=== PATIENT | male | born 1960 | race Caucasian/White ===

== ENCOUNTER 2018-10-30 15:51 | Emergency (ER) | payer OTHER, BC ==
--- NOTE | 2018-10-30 16:39 | EDM.PDOC ---
ED HPI GENERAL MEDICAL PROBLEM - General Chief Complaint: Neuro Symptoms/Deficits Stated Complaint: VERTIGO Time Seen by Provider: 10/30/18 16:36 Source of Information: Reports: Patient, EMS History Limitations: Reports: No Limitations - History of Present Illness INITIAL COMMENTS - FREE TEXT/NARRATIVE: Had a 10 minute episode of vertigo while working underneath his car. Denies injury. Has had a left frontal headache x 1 week, h/o Migraine but hasn't had a migraine for several years. Typical migraine is left frontal. Was treated at [facility] on 10/25/18, per pt head ct was normal and Toradol improved the pain. He denies chest pain, shortness of breath or h/o CAD. Onset: Other ([employer] [employer]) Frontal migraine Pain Score (Numeric/FACES): 3 - Related Data Allergies Allergy/AdvReac Type Severity Reaction Status Date / Time doxazosin Allergy Cannot Verified 10/30/18 17:29 Remember promethazine [From Phenergan] Allergy Burning Verified 10/30/18 17:29 Past Medical History Cardiovascular History: Denies: CAD Respiratory History: Reports: COPD Gastrointestinal History: Reports: GERD Neurological History: Reports: Migraines - Past Surgical History Neurological Surgical History: Reports: Other (See Below) (craniovertebral decompression for migraine) Social & Family History - Tobacco Use Smoking Status *Q: Never Smoker ED ROS GENERAL - Review of Systems Review Of Systems: ROS reveals no pertinent complaints other than HPI. ED EXAM, DIZZINESS - Physical Exam Exam: See Below Exam Limited By: No Limitations General Appearance: Alert, WD/WN, No Apparent Distress Eye Exam: Bilateral Eye: EOMI, PERRL Ears: Normal TMs Nose: Normal Inspection Throat/Mouth: No Airway Compromise Head Exam: Atraumatic, Normocephalic Neck: Supple Respiratory/Chest: No Respiratory Distress, Lungs Clear, Normal Breath Sounds Cardiovascular: Regular Rate, Rhythm, No Murmur GI/Abdominal: No Distention Neurological: Alert, Normal Mood/Affect, No Motor/Sensory Deficits, Oriented x 3 Extremities: Normal Inspection, Normal Range of Motion Psychiatric: Normal Affect, Normal Mood Skin Exam: Warm, Dry, Intact EKG INTERPRETATION EKG Date: 10/30/18 Time: 16:14 Rhythm: NSR Rate (Beats/Min): 74 [place]: Normal P-Wave: Present QRS: Normal ST-T: Normal QT: Normal Comparison: NA - No Prior EKG Course - Vital Signs Last Recorded V/S: Last Vital Signs Temp 36.6 C 10/30/18 15:51 Pulse 73 10/30/18 15:51 Resp 18 10/30/18 15:51 BP 121/72 10/30/18 15:51 Pulse Ox 97 10/30/18 15:51 - Orders/Labs/Meds Orders: Active Orders 24 hr Category Date Time Status EKG Documentation Completion [RC] ASDIRECTED Care 10/30/18 16:05 Active Head wo Cont [CT] Stat Exams 10/30/18 16:35 Taken EKG 12 Lead [EK] Stat Ther 10/30/18 16:05 Ordered Labs: Laboratory Tests 10/30/18 10/30/18 10/30/18 Range/Units 16:08 16:08 16:08 WBC 7.3 (4.5-12.0) X10-3/uL RBC 4.66 (4.30-5.75) x10(6)uL Hgb 14.5 (13.5-17.8) g/dL Hct 41.9 (30.0-51.3) % MCV 89.9 (80-96) fL MCH 31.0 (27.7-33.6) pg MCHC 34.5 (32.2-35.4) g/dL RDW 12.2 (11.5-15.5) % Plt Count 270 (125-369) X10(3)uL MPV 6.9 L (7.4-10.4) fL Neut % (Auto) 58.3 (46-82) % Lymph % (Auto) 28.0 (13-37) % [place] % (Auto) 8.3 (4-12) % Eos % (Auto) 4 (1.0-5.0) % Baso % (Auto) 1 (0-2) % Neut # (Auto) 4.3 (1.6-8.3) # Lymph # (Auto) 2.0 (0.6-5.0) # [place] # (Auto) 0.6 (0.0-1.3) # Eos # (Auto) 0.3 (0.0-0.8) # Baso # (Auto) 0.1 (0.0-0.2) # PT 10.3 (8.7-11.1) INR 1.06 (0.89-1.13) APTT 22.1 L (24.4-33.2) SECONDS Sodium 142 (135-145) mmol/L Potassium 3.6 (3.5-5.3) mmol/L Chloride 106 (100-110) mmol/L Carbon Dioxide 28 (21-32) mmol/L BUN 16 (7-18) mg/dL Creatinine 1.1 (0.70-1.30) mg/dL Est Cr Clr Drug Dosing TNP Estimated GFR (MDRD) > 60 (>60) BUN/Creatinine Ratio 14.5 (9-20) Glucose 99 (80-116) mg/dL Calcium 9.1 (8.6-10.2) mg/dL Total Bilirubin 0.4 (0.1-1.3) mg/dL AST 35 H (5-25) IU/L ALT 39 H (12-36) U/L Alkaline Phosphatase 89 (56-112) IU/L Troponin I (<0.017-0.056) ng/mL Total Protein 7.0 (6.0-8.0) g/dL Albumin 3.7 (3.5-5.2) g/dL Globulin 3.3 g/dL Albumin/Globulin Ratio 1.1 // Range/Units 16:08 WBC (4.5-12.0) X10-3/uL RBC (4.30-5.75) x10(6)uL Hgb (13.5-17.8) g/dL Hct (30.0-51.3) % MCV (80-96) fL MCH (27.7-33.6) pg MCHC (32.2-35.4) g/dL RDW (11.5-15.5) % Plt Count (125-369) X10(3)uL MPV (7.4-10.4) fL Neut % (Auto) (46-82) % Lymph % (Auto) (13-37) % [place] % (Auto) (4-12) % Eos % (Auto) (1.0-5.0) % Baso % (Auto) (0-2) % Neut # (Auto) (1.6-8.3) # Lymph # (Auto) (0.6-5.0) # [place] # (Auto) (0.0-1.3) # Eos # (Auto) (0.0-0.8) # Baso # (Auto) (0.0-0.2) # PT (8.7-11.1) INR (0.89-1.13) APTT (24.4-33.2) SECONDS Sodium (135-145) mmol/L Potassium (3.5-5.3) mmol/L Chloride (100-110) mmol/L Carbon Dioxide (21-32) mmol/L BUN (7-18) mg/dL Creatinine (0.70-1.30) mg/dL Est Cr Clr Drug Dosing Estimated GFR (MDRD) (>60) BUN/Creatinine Ratio (9-20) Glucose (80-116) mg/dL Calcium (8.6-10.2) mg/dL Total Bilirubin (0.1-1.3) mg/dL AST (5-25) IU/L ALT (12-36) U/L Alkaline Phosphatase (56-112) IU/L Troponin I < 0.017 L (<0.017-0.056) ng/mL Total Protein (6.0-8.0) g/dL Albumin (3.5-5.2) g/dL Globulin g/dL Albumin/Globulin Ratio Meds: Medications Discontinued Medications Generic Name Dose Route Start Last Admin Trade Name Freq PRN Reason Stop Dose Admin Sumatriptan Succinate 6 mg 10/30/18 17:12 10/30/18 17:30 Imitrex SUBCUT 10/30/18 17:13 6 mg ONETIME ONE Administration - Radiology Interpretation Free Text/Narrative:: Head CT: No acute process - Re-Assessments/Exams Free Text/Narrative Re-Assessment/Exam: 10/30/18 17:55 Headache improved after Imitrex 6mg SQ. Departure - Departure Time of Disposition: 17:55 Disposition: Home, Self-Care 01 Condition: Good Clinical Impression: Vertigo Migraine Qualifiers: Migraine type: unspecified Status migrainosus presence: without status migrainosus Intractability: not intractable Qualified Code(s): G43.909 - Migraine, unspecified, not intractable, without status migrainosus - Discharge Information *PRESCRIPTION DRUG MONITORING PROGRAM REVIEWED*: No *COPY OF PRESCRIPTION DRUG MONITORING REPORT IN PATIENT JOB: Not Applicable Instructions: Vertigo, [id number], Migraine Headache, [id number] Referrals: PCP,Not In Area [Primary Care Provider] - Forms: ED Department Discharge, ED Return to Work/School Form Additional Instructions: Rest, drink plenty of fluids. Follow up with your Neurologist in 2-3 days. Return to the ER if symptoms worsen. - My Orders Last 24 Hours: My Active Orders 10/30/18 16:05 EKG Documentation Completion [RC] ASDIRECTED EKG 12 Lead [EK] Stat 10/30/18 16:35 Head wo Cont [CT] Stat - Assessment/Plan Last 24 Hours: My Active Orders 10/30/18 16:05 EKG Documentation Completion [RC] ASDIRECTED EKG 12 Lead [EK] Stat 10/30/18 16:35 Head wo Cont [CT] Stat
[2018-10-30] MEDS ORDERED: SUMAtriptan 6 MG/0.5 ML SDV SUBCUT ONE (17:12)
== END 2018-10-30 18:45 | disposition home or self-care (01) ==
LOC: FB.ED 15:51
DX: G43.909 Migraine, unspecified, not intractable, without status migrainosus (principal); R42 Dizziness and giddiness
CPT/HCPCS: 36415; 70450; 80053; 84484; 85025; 85610; 85730; 93005; 96372; 99285-25; J3030

== ENCOUNTER 2019-03-08 08:59 | Day surgery (SDC) | payer OTHER, BC ==
[2019-03-08] MEDS ORDERED: LORazepam 2 MG/ML SDV IVPUSH ONE (09:18)
[2019-03-08] MEDS ORDERED: Glucagon,Human Recombinant 1 MG Vial IVPUSH ONE (09:19)
[2019-03-08] MEDS: Sodium Chloride 0.9% 10 ML Syringe FLUSH PRN ×2 (09:23→09:31)
--- NOTE | 2019-03-08 10:21 | EDM.PDOC ---
ED HPI GENERAL MEDICAL PROBLEM - General Chief Complaint: Gastrointestinal Problem Stated Complaint: FOOD STUCK ON THROAT Time Seen by Provider: 03/08/19 09:45 Source of Information: Reports: Patient - History of Present Illness INITIAL COMMENTS - FREE TEXT/NARRATIVE: Patient is a 58 yo wm who presented to the ED because of a carrot that is stock in his throat and couldn't swallow it. He denies any n/v or dyspnea. He denies any h/o esophageal or throat problems. - Related Data Allergies Allergy/AdvReac Type Severity Reaction Status Date / Time doxazosin Allergy Cannot Verified 03/08/19 09:18 Remember promethazine [From Phenergan] Allergy Burning Verified 03/08/19 09:18 Past Medical History Respiratory History: Reports: COPD Gastrointestinal History: Reports: GERD Genitourinary History: Reports: Retention, Urinary Musculoskeletal History: Reports: Arthritis, Back Pain, Chronic, Fracture Other Musculoskeletal History: L hand crushed, Neurological History: Reports: Migraines Psychiatric History: Reports: Addiction, Anxiety, Depression, Panic Attack, Psych Hospitalization(s), Suicide Attempt, Other (See Below) Other Psychiatric History: hx drug & ETOH abuse, insomnia - Infectious Disease History Infectious Disease History: Reports: Chicken Pox, Measles, Mumps - Past Surgical History Neurological Surgical History: Reports: Other (See Below) (craniovertebral decompression for migraine) Social & Family History - Family History Family Medical History: Noncontributory - Caffeine Use Caffeine Use: Reports: Tea ED ROS ENT - Review of Systems Review Of Systems: See Below Constitutional: Reports: No Symptoms HEENT: Reports: Other (foof stuck in the throat) GI/Abdominal: Reports: No Symptoms : Reports: No Symptoms Musculoskeletal: Reports: No Symptoms Skin: Reports: No Symptoms Neurological: Reports: No Symptoms Hematologic/Lymphatic: Reports: No Symptoms Immunologic: Reports: No Symptoms ED EXAM, ENT - Physical Exam Exam: See Below Exam Limited By: No Limitations General Appearance: Alert, WD/WN, No Apparent Distress Ears: Normal External Exam, Normal Canal, Hearing Grossly Normal, Normal TMs Nose: Normal Inspection, Normal Mucousa, No Blood Mouth/Throat: Normal Inspection, Normal Gums, Normal Lips, Normal Oropharynx, Normal Teeth. No: Drooling Head: Atraumatic, Normocephalic Neck: Normal Inspection, Supple, Non-Tender, Full Range of Motion Respiratory/Chest: No Respiratory Distress, Lungs Clear, Normal Breath Sounds, No Accessory Muscle Use, Chest Non-Tender Cardiovascular: Normal Peripheral Pulses, Regular Rate, Rhythm, No Edema, No Gallop, No JVD, No Murmur, No Rub GI/Abdominal: Normal Bowel Sounds, Soft, Non-Tender, No Organomegaly, No Distention, No Abnormal Bruit Extremities: Normal Inspection, Normal Range of Motion Neurological: Alert, Oriented, CN II-XII Intact Skin: Warm, Dry, Intact Lymphatic: No Adenopathy Course - Vital Signs Text/Narrative:: ativan 1 mg IV Glucagon 1 mg IV NPO for now Dr Bess consulted and will do an upper endoscopy. - Orders/Labs/Meds Orders: Active Orders 24 hr Category Date Time Status Sodium Chloride 0.9% [Saline Flush] Med 03/08/19 09:22 Active 10 ml FLUSH ASDIRECTED PRN Medication Orders Sodium Chloride (Saline Flush) 10 ml FLUSH ASDIRECTED PRN PRN Reason: flush Last Admin: 03/08/19 09:31 Dose: 10 ml Admin: 03/08/19 09:23 Dose: 10 ml Meds: Medications Generic Name Dose Route Start Last Admin Trade Name Freq PRN Reason Stop Dose Admin Sodium Chloride 10 ml 03/08/19 09:22 03/08/19 09:31 Saline Flush FLUSH 10 ml ASDIRECTED PRN Administration flush Discontinued Medications Generic Name Dose Route Start Last Admin Trade Name Freq PRN Reason Stop Dose Admin Glucagon 1 mg 03/08/19 09:19 03/08/19 09:24 Glucagen IVPUSH 03/08/19 09:20 1 mg ONETIME ONE Administration Lorazepam 1 mg 03/08/19 09:18 03/08/19 09:27 Ativan IVPUSH 03/08/19 09:19 1 mg ONETIME ONE Administration Departure - Departure Time of Disposition: 10:45 Disposition: DC/Tfer to Other 70 Condition: Good Clinical Impression: Esophageal obstruction due to food impaction - Discharge Information *PRESCRIPTION DRUG MONITORING PROGRAM REVIEWED*: No *COPY OF PRESCRIPTION DRUG MONITORING REPORT IN PATIENT JOB: No Referrals: PCP,None [Primary Care Provider] - Forms: ED Department Discharge - My Orders Last 24 Hours: My Active Orders 03/08/19 09:22 Sodium Chloride 0.9% [Saline Flush] 10 ml FLUSH ASDIRECTED PRN - Assessment/Plan Last 24 Hours: My Active Orders 03/08/19 09:22 Sodium Chloride 0.9% [Saline Flush] 10 ml FLUSH ASDIRECTED PRN
[2019-03-08] MEDS ORDERED: Lidocaine 4% 5 ML Amp INJECT ONE (10:50)
[2019-03-08] MEDS ORDERED: Midazolam 1 MG/ML 2 ML SDV IV ONE (10:50)
[2019-03-08] MEDS ORDERED: Ketamine 500 mg/10 ML MDV IV ONE (10:50)
--- NOTE | 2019-03-08 11:08 | PCM.HP.2 ---
H&P History of Present Illness - General Date of Service: 03/08/19 Admit Problem/Dx: Pt was eating carrots earlier today. [place] like he had some food stuck, Has had issues with swallowing. Unable to handle saliva even after glucagon and ativan. Has a previous hx of gerd is on a PPI. Has had previous egd. - Related Data Allergies/Adverse Reactions: Allergies Allergy/AdvReac Type Severity Reaction Status Date / Time doxazosin Allergy Cannot Verified 03/08/19 09:18 Remember promethazine [From Phenergan] Allergy Burning Verified 03/08/19 09:18 Past Medical History Respiratory History: Reports: COPD Gastrointestinal History: Reports: GERD Genitourinary History: Reports: Retention, Urinary Musculoskeletal History: Reports: Arthritis, Back Pain, Chronic, Fracture Other Musculoskeletal History: L hand crushed, Neurological History: Reports: Migraines Psychiatric History: Reports: Addiction, Anxiety, Depression, Panic Attack, Psych Hospitalization(s), Suicide Attempt, Other (See Below) Other Psychiatric History: hx drug & ETOH abuse, insomnia - Infectious Disease History Infectious Disease History: Reports: Chicken Pox, Measles, Mumps - Past Surgical History Neurological Surgical History: Reports: Other (See Below) (craniovertebral decompression for migraine) Social & Family History - Family History Family Medical History: Noncontributory - Caffeine Use Caffeine Use: Reports: Tea H&P Review of Systems - Review of Systems: Review Of Systems: See Below General: Reports: No Symptoms HEENT: Reports: Dysphasia Pulmonary: Denies: No Symptoms Cardiovascular: Denies: No Symptoms Gastrointestinal: Reports: Vomiting Exam - Exam Exam: See Below - Exam General: Alert, Oriented, Cooperative HEENT: PERRLA, Conjunctiva Clear, EACs Clear, Mucosa Moist & [place], TMs Clear Neck: Trachea Midline Lungs: Clear to Auscultation, Normal Respiratory Effort Cardiovascular: Regular Rate, Regular Rhythm GI/Abdominal Exam: Normal Bowel Sounds, Soft, Non-Tender *Q Meaningful Use (ADM) - VTE *Q VTE Pharmacological Contraindications *Q: Patient Scheduled Surgery - Problem List (1) Food impaction of esophagus SNOMED Code(s): 745341216 ICD Code: T18.128A - FOOD IN ESOPHAGUS CAUSING OTHER INJURY, INITIAL ENCOUNTER Status: Acute Current Visit: Yes Qualifiers: Encounter type: initial encounter Qualified Code(s): T18.128A - Food in esophagus causing other injury, initial encounter Problem List Initiated/Reviewed/Updated: Yes Orders Last 24hrs: Active Orders 24 hr Category Date Time Status Sodium Chloride 0.9% [Saline Flush] Med 03/08/19 09:22 Active 10 ml FLUSH ASDIRECTED PRN Medication Orders Sodium Chloride (Saline Flush) 10 ml FLUSH ASDIRECTED PRN PRN Reason: flush Last Admin: 03/08/19 09:31 Dose: 10 ml Admin: 03/08/19 09:23 Dose: 10 ml Assessment/Plan Comment:: For an EGD. Procedure and risks are explained to the pt to include bleeding, infection and perforation. - Mortality Measure Prognosis:: Good
[2019-03-08] MEDS ORDERED: Lactated Ringers 1,000 ML IV SCH (11:15)
--- NOTE | 2019-03-08 11:49 | PCM.OPNOTE ---
- General Post-Op/Procedure Note Date of Surgery/Procedure: 03/08/19 Operative Procedure(s): egd Findings: no food impaction no esophageal stricture Pre Op Diagnosis: food impaction Post-Op Diagnosis: nl esophagus Anesthesia Technique: MAC Primary Surgeon: Danny Bess Anesthesia Provider: Lizette Godinez Pathology: none Complications: None Condition: Good Free Text/Narrative:: see dictation
--- NOTE | 2019-03-08 17:52 | OR ---
DATE OF OPERATION: 03/08/2019 SURGEON: Danny Bess MD PROCEDURE PERFORMED: Upper endoscopy. PREOPERATIVE DIAGNOSIS: Food bolus. POSTOPERATIVE DIAGNOSIS: Normal EGD. INDICATIONS FOR PROCEDURE: This is a 58-year-old white male, has a history of gastroesophageal reflux disease and previous EGDs, apparently was eating some carrots earlier today and felt like he had a food impaction. He was given some glucagon as well as some Ativan due to anxiety and was unable to handle his saliva. On the basis of this, he was offered and accepted an EGD. DESCRIPTION OF OPERATION: After an excellent topical and IV sedation was administered, the bite block was inserted. The flexible endoscope was passed down the patient's esophagus and into the stomach. There was no evidence of food bolus. The chewed carrots appeared to be in the stomach. We did not intubate the pylorus to the duodenum. No marked stricture was noted at the GE junction and the remainder of the esophageal exam was essentially unremarkable. The patient tolerated the procedure well. /[id number] /MODL
== END 2019-03-08 12:34 | disposition home or self-care (01) ==
LOC: FB.ED 08:59 → FB.SDS 10:49
PROVIDERS: ATTEND Surgery
DX: T18.128A Food in esophagus causing other injury, initial encounter (principal); K21.9 Gastro-esophageal reflux disease without esophagitis; E78.00 Pure hypercholesterolemia, unspecified; J44.9 Chronic obstructive pulmonary disease, unspecified; F41.9 Anxiety disorder, unspecified; G43.909 Migraine, unspecified, not intractable, without status migrainosus; Z91.018 Allergy to other foods; Z88.8 Allergy status to other drugs, medicaments and biological substances; Z91.048 Other nonmedicinal substance allergy status; Z79.899 Other long term (current) drug therapy
CPT/HCPCS: 43235; 96374; 96375; 99282; J1610; J2001; J2060; J2250; J7120

== ENCOUNTER 2020-06-01 15:28 | Emergency (ER) | payer OTHER, BC ==
[2020-06-01] MEDS: Azithromycin 500 MG in Sodium Chloride 0.9% 250 ML IV ONE (16:07)
[2020-06-01] MEDS: Dexamethasone 4 MG/ML SDV IVPUSH ONE (16:07)
[2020-06-01] MEDS: Sodium Chloride 0.9% 1,000 ML IV SCH (16:08)
--- NOTE | 2020-06-01 16:10 | EDM.PDOC ---
ED HPI GENERAL MEDICAL PROBLEM - General Chief Complaint: Respiratory Problem Stated Complaint: COVID SYMPTOMS Time Seen by Provider: 06/01/20 15:45 Source of Information: Reports: Patient History Limitations: Reports: No Limitations - History of Present Illness INITIAL COMMENTS - FREE TEXT/NARRATIVE: Pt states he has COPD , has been having SOB for the past 4 days , states he has been using his inhalers but symptoms are not improving Denies any fever or chill s has cough has no abd pain no nausea or vomiting no diarrhea Works at [employer] , may be exposed to COVID Onset: Today, Gradual Onset Date: 05/29/20 Duration: Day(s): (4), Getting Worse Location: Reports: Chest Quality: Reports: Pressure Severity: Moderate Improves with: Reports: None Worsens with: Reports: Movement Context: Denies: Activity Associated Symptoms: Reports: Chest Pain, Cough, Malaise, Shortness of Breath, Weakness - Related Data Allergies Allergy/AdvReac Type Severity Reaction Status Date / Time doxazosin Allergy Cannot Verified 06/01/20 19:59 Remember promethazine [From Phenergan] Allergy Burning Verified 06/01/20 19:59 Home Meds: Home Meds Rivaroxaban [Xarelto] 15 mg PO BID #20 tab 06/01/20 [Rx] Past Medical History Respiratory History: Reports: COPD Gastrointestinal History: Reports: GERD Genitourinary History: Reports: Retention, Urinary Musculoskeletal History: Reports: Arthritis, Back Pain, Chronic, Fracture Other Musculoskeletal History: L hand crushed, Neurological History: Reports: Migraines Psychiatric History: Reports: Addiction, Anxiety, Depression, Panic Attack, Psych Hospitalization(s), Suicide Attempt, Other (See Below) Other Psychiatric History: hx drug & ETOH abuse, insomnia - Infectious Disease History Infectious Disease History: Reports: Chicken Pox, Measles, Mumps - Past Surgical History Neurological Surgical History: Reports: Other (See Below) (craniovertebral decompression for migraine) Social & Family History - Family History Family Medical History: No Pertinent Family History - Caffeine Use Caffeine Use: Reports: Tea Other Caffeine Use: diet pop ED ROS GENERAL - Review of Systems Review Of Systems: See Below Constitutional: Reports: Chills, Malaise, Weakness Respiratory: Reports: Shortness of Breath, Wheezing, Pleuritic Chest Pain, Cough, Sputum Cardiovascular: Reports: Chest Pain, Dyspnea on Exertion. Denies: Edema, Syncope Endocrine: Reports: No Symptoms GI/Abdominal: Reports: No Symptoms : Reports: No Symptoms Musculoskeletal: Reports: No Symptoms Skin: Reports: No Symptoms Neurological: Reports: No Symptoms Psychiatric: Reports: No Symptoms Hematologic/Lymphatic: Reports: No Symptoms ED EXAM, GENERAL - Physical Exam Exam: See Below Exam Limited By: No Limitations General Appearance: Alert, WD/WN, Anxious, Mild Distress Eye Exam: Bilateral Eye: EOMI Ears: Normal External Exam Throat/Mouth: Normal Oropharynx Head: Atraumatic, Normocephalic Neck: Supple, Non-Tender Respiratory/Chest: Decreased Breath Sounds, Crackles, Rales Cardiovascular: Regular Rate, Rhythm GI/Abdominal: Soft, Non-Tender Back Exam: Normal Inspection, Full Range of Motion Extremities: Normal Inspection, Normal Range of Motion Neurological: Alert, Oriented, CN II-XII Intact Psychiatric: Normal Affect Skin Exam: Warm, Dry, Intact Course - Vital Signs Last Recorded V/S: Last Vital Signs Temp 36.7 C 06/01/20 15:29 Pulse 87 06/01/20 15:29 Resp 18 06/01/20 15:29 BP 130/74 06/01/20 15:29 Pulse Ox 98 06/01/20 15:29 - Orders/Labs/Meds Orders: Active Orders 24 hr Category Date Time Status EKG Documentation Completion [RC] ASDIRECTED Care 06/01/20 16:07 Active RT Aerosol Therapy [RC] ASDIRECTED Care 06/01/20 17:32 Active Ang Chest [CT] Stat Exams 06/01/20 17:30 Taken ANTICARDIOLIP AB, IGA/G/M, QN Stat Lab 06/01/20 19:53 Ordered FACTOR V LEIDEN MUTATION Stat Lab 06/01/20 19:57 Ordered FIBRINOGEN ACTIVITY Stat Lab 06/01/20 19:52 Ordered LUPUS ANTICOAG/CARDIOLIPIN AB Routine Lab 06/01/20 20:04 Ordered PROTEIN C-FUNCTIONAL Routine Lab 06/01/20 20:04 Ordered PROTEIN S-ANTIGEN Stat Lab 06/01/20 19:52 Ordered PROTEIN S-FUNCTIONAL Routine Lab 06/01/20 20:04 Ordered Sodium Chloride 0.9% [Normal Saline] 1,000 ml Med 06/01/20 16:15 Active IV ASDIRECTED EKG 12 Lead [EK] Routine Ther 06/01/20 16:06 Ordered Medication Orders Sodium Chloride (Normal Saline) 1,000 mls @ 999 mls/hr IV ASDIRECTED DEVIN Last Admin: 06/01/20 16:08 Dose: 999 mls/hr Documented by: YANDEL Labs: Laboratory Tests 06/01/20 06/01/20 06/01/20 Range/Units 16:00 16:40 16:40 WBC 7.1 (3.2-10.1) x10-3/uL RBC 4.69 (3.90-5.90) x10(6)uL Hgb 13.9 (12.9-17.7) g/dL Hct 42.1 (38.3-50.1) % MCV 89.6 (80.8-98.7) fL MCH 29.6 (27.0-33.3) pg MCHC 33.0 (28.7-35.3) g/dL RDW 13.0 (12.4-15.0) % Plt Count 267 (117-477) x10(3)uL MPV 7.1 (6.7-11.0) fL Neut % (Auto) 61.7 (40.3-71.8) % Lymph % (Auto) 25.8 (15.8-45.3) % Jennings % (Auto) 8.0 (5.5-15.2) % Eos % (Auto) 3.5 (0.1-6.8) % Baso % (Auto) 1.0 (0.3-3.8) % Neut # (Auto) 4.4 (1.7-6.9) x10-3/uL Lymph # (Auto) 1.8 (0.5-4.5) x10-3/uL Jennings # (Auto) 0.6 (0.0-1.2) x10-3/uL Eos # (Auto) 0.2 (0.0-0.6) x10-3/uL Baso # (Auto) 0.1 (0.0-0.3) x10-3/uL PT (9.0-11.1) sec INR (1.00-1.24) D-Dimer, Quantitative (0.0-0.59) mg/LFEU Sodium 142 (135-145) mmol/L Potassium 3.7 (3.5-5.3) mmol/L Chloride 107 (100-110) mmol/L Carbon Dioxide 24 (21-32) mmol/L BUN 16 (7-18) mg/dL Creatinine 1.0 (0.70-1.30) mg/dL Est Cr Clr Drug Dosing TNP Estimated GFR (MDRD) > 60 (>60) BUN/Creatinine Ratio 16.0 (9-20) Glucose 143 H (80-116) mg/dL Calcium 9.0 (8.6-10.2) mg/dL Troponin I (4.0-60.3) pg/mL C-Reactive Protein (0.5-0.9) mg/dL SARS-CoV-2 RNA (SUKI) Negative (NEGATIVE) 06/01/20 06/01/20 06/01/20 Range/Units 16:40 16:40 16:40 WBC (3.2-10.1) x10-3/uL RBC (3.90-5.90) x10(6)uL Hgb (12.9-17.7) g/dL Hct (38.3-50.1) % MCV (80.8-98.7) fL MCH (27.0-33.3) pg MCHC (28.7-35.3) g/dL RDW (12.4-15.0) % Plt Count (117-477) x10(3)uL MPV (6.7-11.0) fL Neut % (Auto) (40.3-71.8) % Lymph % (Auto) (15.8-45.3) % Jennings % (Auto) (5.5-15.2) % Eos % (Auto) (0.1-6.8) % Baso % (Auto) (0.3-3.8) % Neut # (Auto) (1.7-6.9) x10-3/uL Lymph # (Auto) (0.5-4.5) x10-3/uL Jennings # (Auto) (0.0-1.2) x10-3/uL Eos # (Auto) (0.0-0.6) x10-3/uL Baso # (Auto) (0.0-0.3) x10-3/uL PT 11.4 H (9.0-11.1) sec INR 1.06 (1.00-1.24) D-Dimer, Quantitative 2.54 H (0.0-0.59) mg/LFEU Sodium (135-145) mmol/L Potassium (3.5-5.3) mmol/L Chloride (100-110) mmol/L Carbon Dioxide (21-32) mmol/L BUN (7-18) mg/dL Creatinine (0.70-1.30) mg/dL Est Cr Clr Drug Dosing Estimated GFR (MDRD) (>60) BUN/Creatinine Ratio (9-20) Glucose (80-116) mg/dL Calcium (8.6-10.2) mg/dL Troponin I 4.7 (4.0-60.3) pg/mL C-Reactive Protein 4.2 H* (0.5-0.9) mg/dL SARS-CoV-2 RNA (SUKI) (NEGATIVE) Meds: Medications Generic Name Dose Route Start Last Admin Trade Name Freq PRN Reason Stop Dose Admin Sodium Chloride 1,000 mls @ 999 mls/hr 06/01/20 16:15 06/01/20 16:08 Normal Saline IV 999 mls/hr ASDIRECTED DEVIN Administration Discontinued Medications Generic Name Dose Route Start Last Admin Trade Name Freq PRN Reason Stop Dose Admin Albuterol/Ipratropium 3 ml 06/01/20 17:32 06/01/20 18:33 Duoneb 3.0-0.5 Mg/3 Ml NEB 06/01/20 17:33 3 ml ONETIME ONE Administration Dexamethasone 8 mg 06/01/20 16:00 06/01/20 16:07 Decadron IVPUSH 06/01/20 16:01 8 mg ONETIME ONE Administration Azithromycin 500 mg/ Sodium 250 mls @ 250 mls/hr 06/01/20 16:01 06/01/20 16:07 Chloride IV 06/01/20 17:00 250 mls/hr ONETIME ONE Administration Iopamidol 100 ml 06/01/20 17:55 06/01/20 18:10 Isovue-370 (76%) IV 06/01/20 17:56 75 ml . DIRECTED ONE Administration Rivaroxaban 15 mg 06/01/20 19:42 06/01/20 19:44 Xarelto PO 06/01/20 19:43 15 mg NOW STA Administration - Re-Assessments/Exams Free Text/Narrative Re-Assessment/Exam: 06/01/20 19:10 pt came in sob , 02 sat was 98% since he had high landy for COVID L: screening was done Ddimer was ordered and came back positive CT chest for PE was ordered and came back positive in the meantime , was treated as having bronchitis vs COVID : given steroids , zithromax and IVF pt denies a history of any recent surgery , no falls , no head bleeds in the last one month Admits to having frequent headaches ?? migraine , last head CT was about 2 yrs ago 06/01/20 20:[address] labs drawn for possible coagulation disorder will start pt on Xarelto Departure - Departure Time of Disposition: 20:25 Disposition: Home, Self-Care 01 Condition: Good Clinical Impression: Pulmonary embolism, Shortness of breath on exertion, COVID-19 ruled out by laboratory testing - Discharge Information *PRESCRIPTION DRUG MONITORING PROGRAM REVIEWED*: Not Applicable *COPY OF PRESCRIPTION DRUG MONITORING REPORT IN PATIENT JOB: Not Applicable Prescriptions: Rivaroxaban [Xarelto] 15 mg PO BID #20 tab Referrals: PCP,None [Primary Care Provider] - Forms: ED Department Discharge Additional Instructions: Make a follow up appointment to be seen in am or in 1-2 days CAll with any concerns Sepsis Event Note (ED) - Focused Exam Vital Signs: Vital Signs Temp Pulse Resp BP Pulse Ox 06/01/20 15:29 36.7 C 87 18 130/74 98 - My Orders Last 24 Hours: My Active Orders 06/01/20 16:06 EKG 12 Lead [EK] Routine 06/01/20 16:07 EKG Documentation Completion [RC] ASDIRECTED 06/01/20 16:15 Sodium Chloride 0.9% [Normal Saline] 1,000 ml IV ASDIRECTED 06/01/20 17:30 Ang Chest [CT] Stat 06/01/20 17:32 RT Aerosol Therapy [RC] ASDIRECTED 06/01/20 19:52 FIBRINOGEN ACTIVITY Stat PROTEIN S-ANTIGEN Stat 06/01/20 19:53 ANTICARDIOLIP AB, IGA/G/M, QN Stat 06/01/20 19:57 FACTOR V LEIDEN MUTATION Stat 06/01/20 20:04 LUPUS ANTICOAG/CARDIOLIPIN AB Routine PROTEIN C-FUNCTIONAL Routine PROTEIN S-FUNCTIONAL Routine - Assessment/Plan Last 24 Hours: My Active Orders 06/01/20 16:06 EKG 12 Lead [EK] Routine 06/01/20 16:07 EKG Documentation Completion [RC] ASDIRECTED 06/01/20 16:15 Sodium Chloride 0.9% [Normal Saline] 1,000 ml IV ASDIRECTED 06/01/20 17:30 Ang Chest [CT] Stat 06/01/20 17:32 RT Aerosol Therapy [RC] ASDIRECTED 06/01/20 19:52 FIBRINOGEN ACTIVITY Stat PROTEIN S-ANTIGEN Stat 06/01/20 19:53 ANTICARDIOLIP AB, IGA/G/M, QN Stat 06/01/20 19:57 FACTOR V LEIDEN MUTATION Stat 06/01/20 20:04 LUPUS ANTICOAG/CARDIOLIPIN AB Routine PROTEIN C-FUNCTIONAL Routine PROTEIN S-FUNCTIONAL Routine
[2020-06-01] MEDS: Iopamidol 755 Mg/ML 100 ML Bottle IV ONE (18:10)
[2020-06-01] MEDS: Albuterol/Ipratropium 3.0-0.5 MG/3 ML Neb Soln NEB ONE (18:33)
--- NOTE | 2020-06-01 18:57 | CT ---
INDICATION: Elevated D-dimer, question PE. D-dimer 2.54, negative COVID test. COMPUTERIZED TOMOGRAPHY ANGIOGRAPHY OF THE CHEST WITH CONTRAST: Spiral 1.25 mm axial sections were obtained through the chest with 75 mL Isovue-370 at 3 mL/second with sagittal, coronal and axial reconstructions 06/01/20 - no comparison. Total exam DLP was 511.20 mGy-cm. Calcifications are noted in the arch of the aorta. Minimal mediastinal lymphadenopathy is noted, which is nonspecific. No mediastinal mass was seen. The heart did not appear enlarged. No pericardial effusion was seen. Upper abdomen included on this study showed evidence of some minimal renal cortical scarring. A definite active infiltrate or effusion was not identified. Second order pulmonary artery emboli are noted bilaterally extending to the posterior basilar left lower lobe and anterior basilar right lower lobe with the vessels distal to those emboli not opacifying with contrast - obstructed. At this time, no findings to strongly suggest pulmonary infarct are seen. IMPRESSION: Bilateral second order pulmonary emboli. Report was called to Dr. Lazcano at 1835 hours. [facility]
--- NOTE | 2020-06-01 19:43 | CT ---
INDICATION: Migraine. CT HEAD WITHOUT CONTRAST: Spiral 3.75 mm axial sections were obtained through the brain without contrast and compared with 10/30/18. Axial, sagittal and coronal reconstructions were obtained. Total exam DLP was 1348.07 mGy-cm. Mild degenerative changes are noted at the odontoatlantian joint. Thickening of the linings of the maxillary antra are noted to a mild degree bilaterally, present previously. Paranasal sinuses and mastoid air cells were otherwise well aerated. No definite cranial abnormality was seen. No shift of midline structures or ventricular abnormalities were identified. Calcifications are noted in the internal carotid arteries. Previous surgery is again noted at the craniovertebral area. There are noted some minimal areas of decreased density in the white matter, which may represent a minimal degree of microvascular disease with perhaps a very slight increase compared with the previous examination. Otherwise, no abnormal areas of density were identified - no bleeding site or hematoma was seen. The orbits appear to be intact. IMPRESSION: 1. No acute intracranial abnormality. 2. Cerebrovascular disease with suggestion of minimal, perhaps very slightly progressive, microvascular disease-type changes in the white matter, although other causes of leukoencephalopathy cannot be excluded. 3. Minimal thickening of the linings of the maxillary antra present previously, likely chronic allergic in origin. Report was called to Dr. Lazcano at 1930 hours. [facility]
[2020-06-01] MEDS: Rivaroxaban 15 MG Tab PO STA (19:44)
[2020-06-02] MEDS ORDERED: Rivaroxaban 15 MG Tab PO SCH (18:00)
[2020-06-05 12:12] LABS: PROTEIN S, FREE 102 % (57-157); PROTEIN S, TOTAL 102 % (60-150)
== END 2020-06-01 20:38 | disposition home or self-care (01) ==
LOC: FB.ED 15:28
DX: I26.99 Other pulmonary embolism without acute cor pulmonale (principal); J44.9 Chronic obstructive pulmonary disease, unspecified; Z20.828 Contact with and (suspected) exposure to other viral communicable diseases; Z79.01 Long term (current) use of anticoagulants; Z88.8 Allergy status to other drugs, medicaments and biological substances
CPT/HCPCS: 36415; 70450; 71275; 80048; 81241; 84484; 85025; 85303; 85305; 85379; 85384; 85610; 86140; 86147; 93005; 94640; 96365; 96375; 99285-25; A9270-GY; J0456; J1100; J7030; J7050; J7620-GY; Q9967; U0002

== ENCOUNTER 2022-11-27 07:51 | Emergency (ER) | payer OTHER, BC ==
[2022-11-27] MEDS: Nitroglycerin 0.4 MG Tab.SL SL ONE (08:22)
[2022-11-27] MEDS: Aspirin 81 MG Tab.Chew PO ONE (08:22)
[2022-11-27 08:27] LABS: BASOPHILS ABSOLUTE AUTO 0.1 x10-3/uL (0.0-0.3); BASOPHILS PERCENT AUTO 1.3 % (0.3-3.8); EOSINOPHILS ABSOLUTE AUTO 0.3 x10-3/uL (0.0-0.6); EOSINOPHILS PERCENT AUTO 4.5 % (0.1-6.8); HEMATOCRIT 42.4 % (38.3-50.1); HEMOGLOBIN 14.4 g/dL (12.9-17.7); LYMPHOCYTES ABSOLUTE AUTO 1.8 x10-3/uL (0.5-4.5); LYMPHOCYTES PERCENT AUTO 30.4 % (15.8-45.3); MEAN CORPUSCULAR HEMOGLOBIN 30.2 pg (27.0-33.3); MEAN CORPUSCULAR HGB CONC 34.1 g/dL (28.7-35.3); MEAN CORPUSCULAR VOLUME 88.7 fL (80.8-98.7); MEAN PLATELET VOLUME 6.8 fL (6.7-11.0); MONOCYTES ABSOLUTE AUTO 0.6 x10-3/uL (0.0-1.2); NEUTROPHILS ABSOLUTE AUTO 3.2 x10-3/uL (1.7-6.9); NEUTROPHILS PERCENT AUTO 53.8 % (40.3-71.8); PLATELET COUNT,PLT 262 x10(3)uL (117-477); RED BLOOD CELL COUNT 4.78 x10(6)uL (3.90-5.90); RED CELL DISTRIBUTION WIDTH 13.6 % (12.4-15.0); WHITE BLOOD CELL COUNT,WBC 5.9 x10-3/uL (3.2-10.1)
[2022-11-27 08:29] LABS: BLOOD UREA NITROGEN,BUN 21 mg/dL (7-18); BUN/CREATININE RATIO 19.1 (9-20); CALCIUM 8.6 mg/dL (8.6-10.2); CARBON DIOXIDE,CO2 27 mmol/L (21-32); CHLORIDE,CL 106 mmol/L (100-110); CREATININE 1.1 mg/dL (0.70-1.30); ESTIMATED GFR 75 mL/min (>60); GLUCOSE RANDOM 101 mg/dL (80-116); SODIUM,NA 140 mmol/L (135-145)
[2022-11-27] MEDS: Sodium Chloride 0.9% 1,000 ML IV SCH (08:36)
[2022-11-27 08:38] LABS: TROPONIN I 5.7 pg/mL (4.0-60.3)
[2022-11-27 08:40] LABS: ALANINE AMINOTRANSFERASE,ALT 31 U/L (12-36); ALBUMIN 3.5 g/dL (3.2-4.6); ALKALINE PHOSPHATASE 90 IU/L (56-112); ASPARTATE AMNIOTRANSFERASE,AST 32 IU/L (5-25); BILIRUBIN TOTAL 0.3 mg/dL (0.1-1.3); PROTEIN TOTAL,TP 7.2 g/dL (6.0-8.0)
== END 2022-11-27 12:10 | disposition home or self-care (01) ==
LOC: FB.ED 07:51
DX: R07.9 Chest pain, unspecified (principal); K80.20 Calculus of gallbladder without cholecystitis without obstruction; E78.00 Pure hypercholesterolemia, unspecified; J44.9 Chronic obstructive pulmonary disease, unspecified; Z79.82 Long term (current) use of aspirin; Z88.6 Allergy status to analgesic agent; Z88.8 Allergy status to other drugs, medicaments and biological substances; Z79.899 Other long term (current) drug therapy
CPT/HCPCS: 36415; 71046; 80053; 83690; 84484; 85025; 85379; 96360; 99285; A9270; J7030

== ENCOUNTER 2024-07-23 10:28 | Emergency (ER) | payer BC, OTHER ==
[2024-07-23] MEDS ORDERED: Sodium Chloride 0.9% 10 ML Syringe FLUSH PRN (10:39)
[2024-07-23 11:04] LABS: BASOPHILS PERCENT AUTO 0.6 % (0.3-3.8); EOSINOPHILS ABSOLUTE AUTO 0.2 x10-3/uL (0.0-0.6); EOSINOPHILS PERCENT AUTO 2.7 % (0.1-6.8); HEMATOCRIT 44.8 % (38.3-50.1); HEMOGLOBIN 15.6 g/dL (12.9-17.7); LYMPHOCYTES ABSOLUTE AUTO 1.8 x10-3/uL (0.5-4.5); LYMPHOCYTES PERCENT AUTO 26.6 % (15.8-45.3); MEAN CORPUSCULAR HEMOGLOBIN 30.8 pg (27.0-33.3); MEAN CORPUSCULAR HGB CONC 34.8 g/dL (28.7-35.3); MEAN CORPUSCULAR VOLUME 88.4 fL (80.8-98.7); MEAN PLATELET VOLUME 6.4 fL (6.7-11.0); MONOCYTES ABSOLUTE AUTO 0.7 x10-3/uL (0.0-1.2); MONOCYTES PERCENT AUTO 9.9 % (5.5-15.2); NEUTROPHILS ABSOLUTE AUTO 4.1 x10-3/uL (1.7-6.9); NEUTROPHILS PERCENT AUTO 60.2 % (40.3-71.8); PLATELET COUNT,PLT 385 x10(3)uL (117-477); RED BLOOD CELL COUNT 5.07 x10(6)uL (3.90-5.90); RED CELL DISTRIBUTION WIDTH 13.3 % (12.4-15.0); WHITE BLOOD CELL COUNT,WBC 6.8 x10-3/uL (3.2-10.1)
[2024-07-23 11:06] LABS: BLOOD UREA NITROGEN,BUN 14 mg/dL (7-18); BUN/CREATININE RATIO 12.7 (9-20); CALCIUM 9.1 mg/dL (8.6-10.2); CARBON DIOXIDE,CO2 31 mmol/L (21-32); CHLORIDE,CL 105 mmol/L (100-110); CREATININE 1.1 mg/dL (0.70-1.30); ESTIMATED GFR 75 mL/min (>60); GLUCOSE RANDOM 93 mg/dL (80-116); POTASSIUM,K 4.1 mmol/L (3.5-5.3); SODIUM,NA 141 mmol/L (135-145)
[2024-07-23 11:12] LABS: A/G RATIO 0.8; ALANINE AMINOTRANSFERASE,ALT 43 U/L (12-36); ALBUMIN 3.3 g/dL (3.2-4.6); ALKALINE PHOSPHATASE 106 IU/L (56-112); ASPARTATE AMNIOTRANSFERASE,AST 32 IU/L (5-25); BILIRUBIN TOTAL 0.5 mg/dL (0.1-1.3); PROTEIN TOTAL,TP 7.4 g/dL (6.0-8.0)
[2024-07-23 11:23] LABS: D-DIMER QUANTITATIVE 0.92 mg/LFEU (0.0-0.59)
[2024-07-23 11:28] LABS: INR 1.39 (1.00-1.24)
[2024-07-23 11:42] LABS: PTT,PARTIAL THROMBOPLSTIN TIME 33.6 SECONDS (24.4-33.2)
[2024-07-23] MEDS: Iopamidol 755 Mg/ML 100 ML Bottle IV SCH (12:21)
== END 2024-07-23 13:00 | disposition home or self-care (01) ==
LOC: FB.ED 10:28
DX: R09.1 Pleurisy (principal); J44.9 Chronic obstructive pulmonary disease, unspecified; Z87.891 Personal history of nicotine dependence; Z88.8 Allergy status to other drugs, medicaments and biological substances; Z79.82 Long term (current) use of aspirin; Z79.899 Other long term (current) drug therapy; Z79.01 Long term (current) use of anticoagulants
CPT/HCPCS: 36415; 71275; 74177; 80053; 83880; 84484; 85025; 85379; 85610; 85730; 93005; 99285; Q9967; 93010; 99284

== ENCOUNTER 2024-08-24 14:45 | Emergency (ER) | payer BC, OTHER ==
[2024-08-24] MEDS ORDERED: Lidocaine 1% 5 ML VIAL INFILT ONE (14:46)
[2024-08-24] MEDS: Diphtheria,Pertussis(Acell),Tetanus Vaccine 0.5 ML Syringe IM ONE (17:40)
== END 2024-08-24 17:52 | disposition home or self-care (01) ==
LOC: FB.ED 14:45
DX: S01.112A Laceration without foreign body of left eyelid and periocular area, initial encounter (principal); J44.9 Chronic obstructive pulmonary disease, unspecified; K21.9 Gastro-esophageal reflux disease without esophagitis; Z87.891 Personal history of nicotine dependence; Z79.899 Other long term (current) drug therapy; Z79.82 Long term (current) use of aspirin; Z88.8 Allergy status to other drugs, medicaments and biological substances; Z23 Encounter for immunization; W29.0XXA Contact with powered kitchen appliance, initial encounter
CPT/HCPCS: 12011; 70450; 90471; 90715; 99283; 99283-25; J2003